=== PATIENT | male | born 1960 | race Native Hawaiian/Other Pacific Islander ===

== ENCOUNTER 2018-08-01 08:09 | Outpatient (CLI) | payer OTHER ==
[~2018-08-01] VITALS: Ht 30.5 cm; Wt 0.5 kg
== END 2018-08-01 23:43 | disposition home or self-care (01) ==
LOC: NM 08:09
DX: R06.02 Shortness of breath (principal)
CPT/HCPCS: 93306; A9500; J2785

== ENCOUNTER 2020-12-29 16:19 | Outpatient (CLI) | payer OTHER | END 2020-12-29 22:39 | disposition home or self-care (01) | LOC: RAD 16:19 | PROVIDERS: ATTEND Nurse Practitioner Primary Care | DX: J40 Bronchitis, not specified as acute or chronic (principal) ==

== ENCOUNTER 2022-10-10 14:14 | Outpatient (CLI) | payer OTHER | END 2022-10-10 18:58 | disposition home or self-care (01) | LOC: CT 14:14 | PROVIDERS: ATTEND Nurse Practitioner | DX: R07.89 Other chest pain (principal) ==